=== PATIENT | female | born 2005 | race Two or more races ===

== ENCOUNTER 2025-04-05 23:14 | Outpatient (CLI) | payer OTHER ==
[~2025-04-05] VITALS: Ht 170.2 cm; Wt 87.2 kg
[2025-04-05] MEDS ORDERED: PREN1TAB11 PO (23:29)
[2025-04-05] MEDS ORDERED: GNP250TA9 PO (23:29)
[2025-04-05] MEDS ORDERED: NIFE10CA61 PO (23:29)
[2025-04-05 23:32] VITALS: BP 125/76; O2SAT 99
[2025-04-05] MEDS ORDERED: HOME MED LIST COMPLETE! XX SCH (23:35)
[2025-04-06 00:05] VITALS: BP 130/75
== END 2025-04-06 00:05 | disposition home or self-care (01) ==
LOC: M LDO 23:14
PROVIDERS: ATTEND Obstetrics & Gynecology
DX: O26.852 Spotting complicating pregnancy, second trimester (principal); O99.332 Smoking (tobacco) complicating pregnancy, second trimester; F17.290 Nicotine dependence, other tobacco product, uncomplicated; Z3A.25 25 weeks gestation of pregnancy
CPT/HCPCS: 59025; G0463

== ENCOUNTER → 2025-04-23 | Outpatient (CLI) | payer OTHER ==
[~2025-04-23] MED LIST: GNP250TA9 PO; NIFE10CA61 PO; PREN1TAB11 PO
[2025-04-23 17:45] LABS: PLATELET COUNT, AUTOMATED 168 10^3/uL (150-450)
[2025-04-23 18:18] LABS: GLUCOSE CHALLENGE TEST 1 HOUR 94 MG/DL (LESS THAN 140)
[2025-04-23 18:44] LABS: HIV 1&2 SCREEN NEGATIVE (NEGATIVE)
[2025-04-23 18:51] LABS: HEPATITIS C VIRUS ABY INDEX < 0.02 INDEX (<0.8)
[2025-04-23 19:57] LABS: Trichomonas vaginalis (AMP) NOT DETECTED (NEGATIVE)
[2025-04-23 20:20] LABS: GC DNA AMPLIFICATION NEGATIVE (NEGATIVE)
== END ==
LOC: M PLALAB 14:22
PROVIDERS: ATTEND Advanced Practice Midwife
DX: Z34.02 Encounter for supervision of normal first pregnancy, second trimester (principal)

== ENCOUNTER → 2025-06-18 | Outpatient (REF) | payer OTHER | LOC: M SFHCWAGY 12:43 | PROVIDERS: ATTEND Obstetrics & Gynecology | DX: Z34.80 Encounter for supervision of other normal pregnancy, unspecified trimester (principal) ==